=== PATIENT | female | born 1965 | race Caucasian/White ===

== ENCOUNTER 2025-01-09 14:24 | Emergency (ER) | payer MEDICAID, SELFPAY ==
[2025-01-09 14:40] VITALS: BP 140/76; PULSE 91; RESP 20; TEMP 36.6; O2SAT 98; BMI 40.4
[2025-01-09] MEDS: hydrOXYzine pamoate 25MG CAPSULE 50 MG PO (14:57)
--- NOTE | 2025-01-09 15:25 | HMH.EDGENADL ---
Discharge Plan Disposition Patient Disposition: Home, Self-Care Prescriptions Prescriptions: New lorazepam [Ativan] 1 mg tablet 1 mg PO Q8H PRN (Reason: anxiety) Qty: 9 0RF Referrals Follow up/Referrals: Kenji Acuña DO [Primary Care Provider] - See instructions Activity Restrictions/Add. Instructions Additional Instructions/Restrictions: I recommend that you follow-up closely with your primary care doctor or your behavioral health specialist to discuss all the stressors that are going on in your life return with any significant worsening of your symptoms such as chest pain shortness of breath or other concerns. Clinical Impressions Clinical Impression: Acute anxiety Print Language Print Language: Mozambican Discharge ED Provider: Geoff Menard General Adult HPI <Geoff Menard MD - Last Filed: 01/09/25 15:28> General Chief complaint: Anxiety Stated complaint: anxiety attack-light headed Time Seen by Provider: 01/09/25 14:40 Mode of Arrival: Ambulatory Source of Information: Patient Description of Symptoms (Recalled from ER Triage Doc. by RN): pt states she is very stressed out and hasnt beens leeping well and thinks she is having an anxiety attack today denies any acute issues History of Present Illness HPI narrative: Please note that above description of symptoms, in this electronic medical record under categorization of recalled from ER triage doctor by RN are reflective of an initial nursing assessment, however, is not reflective of my full history and physical exam that was personally taken and clarified. Consequentially, this preceding description of symptoms, which may include the patient's categorized chief complaint in the EMR, do not reflect my personal clinical impression, and the ultimate description of history of present illness and patient stated complaints should be deferred to this section of the note. Unless stated otherwise or congruent with this section of the note, additional signs, symptoms, or incongruence should be interpreted as inaccurate with my clinical impression. Related Data Previous Rx's ?Medication ?Instructions ?Recorded lorazepam 1 mg tablet (Ativan) 1 mg PO Q8H PRN anxiety #9 tabs 01/09/25 Allergies Allergy/AdvReac Type Severity Reaction Status Date / Time lisinopril Allergy Other Verified 01/09/25 14:53 PFSH <Geoff Menard MD - Last Filed: 01/09/25 15:28> PFS Disclaimer: The information contained in this section may have been updated after the patient was seen, as this information can be updated by other users. Social History (Updated 01/09/25 @ 15:28 by Geoff Meanrd MD) Smoking Status: Current every day smoker alcohol intake: never current occupational status: retired Travel in the last 8 weeks: None Have you lived/traveled outside US in past 30 days?: No Contact w/someone who lives/traveled outside US past 30 days?: No Exposure to someone with infectious disease in past 14 days?: No Do you have a fever (greater than 100.4 F or 38 C)?: No Have you tested positive for COVID-19: No Exposed to someone with COVID-19 in past 14 days?: No Do you have a sore throat?: No Do you have a cough?: No Do you have any weakness?: No Do you have any diarrhea?: No Are you experiencing any unusual bleeding?: No Do you have any muscle aches/pain?: No Do you have any abdominal pain?: No Are you experiencing loss of taste or smell?: No <Geoff Menard MD - Last Filed: 01/09/25 15:28> ROS Obtained: Yes All systems reviewed & no additional complaints except as documented Physical Exam <Geoff Menard MD - Last Filed: 01/09/25 15:28> General General appearance: alert and anxious Comment: Tearful, tremulous Head Head exam: atraumatic and normocephalic Eye Eye exam: Present normal appearance, PERRL and EOMI Neck Neck exam: Present normal inspection, full ROM and trachea midline Respiratory Respiratory exam: Absent respiratory distress, wheezes, stridor, accessory muscle use or prolonged expiratory phase Cardiovascular Cardiovascular exam: Present other (Pulses equal symmetric in upper and lower extremities) Abdominal Exam Abdominal exam: Present soft; Absent distention, tenderness or pulsatile mass Extremities Exam Extremities exam: Absent edema Neurological Exam Neurological exam: Present alert, oriented X3 and CN II-XII intact; Absent motor sensory deficit Psychiatric Psychiatric exam: Absent homicidal ideation or suicidal ideation Skin Skin exam: Present warm and dry; Absent diaphoresis or erythema Medical Decision Making <Geoff Menard MD - Last Filed: 01/09/25 15:28> Medical Records Medical records reviewed: Yes I reviewed the patient's medical records. Screening: Per USPSTF and CDC recommendations, given the prevalence of disease in our region, it is our hospital?s policy to screen for HIV and viral Hepatitis for all patients aged 18 and over and those with ongoing risk factors. Jac Inquiry Pt receiving controlled substance: No Jac was queried for this patient: No Vital Signs: 01/09/25 14:40 Temperature 97.9 F Temperature Source Oral Pulse Rate [Left Radial] 91 H Respiratory Rate 20 Blood Pressure [Right Arm] 140/76 Blood Pressure Mean [Right Arm] 97 02 Sat by Pulse Oximetry 98 Oxygen Delivery Method Room Air Orders (Tests/Meds): ED MEDICATIONS Discontinued Medications Generic Name Dose Route Start Last Admin Trade Name Freq PRN Reason Stop Dose Admin Hydroxyzine Pamoate 50 mg 01/09/25 14:55 01/09/25 14:57 Hydroxyzine Pamoate 25mg Capsule PO 01/09/25 14:56 50 mg ONCE ONE Administration Lorazepam 1 mg 01/09/25 16:17 01/09/25 16:20 Lorazepam 1mg Tablet PO 01/09/25 16:18 1 mg ONCE ONE Administration Medical Decision Narrative: This is a 59-year-old female presenting with panic attack. She states that she does have a history of anxiety, previously on benzodiazepines. These were discontinued months ago. States that she has had numerous deaths in the family recently, her was just discharged from the hospital due to an [place] last week. He has at home and is debilitated. She states that on top of all of this, she has a loved 1 who is currently on the ventilator and will likely be made comfort care today, 01/09. All of this coming to ahead and she states that she is having trouble handling at all. No homicidal or suicidal ideation. No hallucinations or psychotic symptoms. She states that she is incredibly anxious, think she is having a panic attack. Denies shortness of breath, chest pain, nausea, vomiting, syncopal episodes, or any other concerns. Came in for further evaluation and help. History obtained with patient. On my evaluation, patient tearful, tremulous, anxious and very obviously in emotional distress. Lungs are clear, cardiac exam nontachycardic, no murmurs gallops or rubs. No lower extremity edema. She is neurologically intact and nontangential answering questions appropriately. Alert and oriented. Because I believe patient is having acute panic attack, Vistaril to be administered. I do not feel this is likely business center representative of intoxication or withdrawal because patient has not been on benzodiazepines and denies any other drug use other than cigarettes and nicotine. Patient was administered Vistaril. Prior to reevaluation, care handed off to oncoming physician. Biostatistician disclaimer Much of this encounter note is an electronic workplace rehabilitation officer spoken language to printed text. Electronic workplace rehabilitation officer of the spoken language may permit errors. Although I have reviewed the note, some errors may still exist. <Deneen Galan MD - Last Filed: 01/09/25 16:47> Vital Signs: 01/09/25 14:40 Temperature 97.9 F Temperature Source Oral Pulse Rate [Left Radial] 91 H Respiratory Rate 20 Blood Pressure [Right Arm] 140/76 Blood Pressure Mean [Right Arm] 97 02 Sat by Pulse Oximetry 98 Oxygen Delivery Method Room Air Orders (Tests/Meds): ED MEDICATIONS Discontinued Medications Generic Name Dose Route Start Last Admin Trade Name Freq PRN Reason Stop Dose Admin Hydroxyzine Pamoate 50 mg 01/09/25 14:55 01/09/25 14:57 Hydroxyzine Pamoate 25mg Capsule PO 01/09/25 14:56 50 mg ONCE ONE Administration Lorazepam 1 mg 01/09/25 16:17 01/09/25 16:20 Lorazepam 1mg Tablet PO 01/09/25 16:18 1 mg ONCE ONE Administration ECG Data Tracing #1: I reviewed this ECG and interpreted as documented below: Ventricular rate of 84 normal sinus rhythm no acute ischemic changes noted no significant conduction abnormalities there is a normal axis Medical Decision Narrative: This is a 59-year-old female presenting with panic attack. She states that she does have a history of anxiety, previously on benzodiazepines. These were discontinued months ago. States that she has had numerous deaths in the family recently, her was just discharged from the hospital due to an [place] last week. He has at home and is debilitated. She states that on top of all of this, she has a loved 1 who is currently on the ventilator and will likely be made comfort care today, 01/09. All of this coming to ahead and she states that she is having trouble handling at all. No homicidal or suicidal ideation. No hallucinations or psychotic symptoms. She states that she is incredibly anxious, think she is having a panic attack. Denies shortness of breath, chest pain, nausea, vomiting, syncopal episodes, or any other concerns. Came in for further evaluation and help. History obtained with patient. On my evaluation, patient tearful, tremulous, anxious and very obviously in emotional distress. Lungs are clear, cardiac exam nontachycardic, no murmurs gallops or rubs. No lower extremity edema. She is neurologically intact and nontangential answering questions appropriately. Alert and oriented. Because I believe patient is having acute panic attack, Vistaril to be administered. I do not feel this is likely business center representative of intoxication or withdrawal because patient has not been on benzodiazepines and denies any other drug use other than cigarettes and nicotine. Patient was administered Vistaril. Prior to reevaluation, care handed off to oncoming physician. Biostatistician disclaimer Much of this encounter note is an electronic workplace rehabilitation officer spoken language to printed text. Electronic workplace rehabilitation officer of the spoken language may permit errors. Although I have reviewed the note, some errors may still exist. This is Dr. Galan I took over from Dr. Menard at around 3 PM. After Vistaril patient complained of chest tightness she was adamant that she was not having any chest pain. After further discussion with the patient she states that there has been a lot of anxiety at home including her 's recently in the hospital [id number] who is terminally ill moving and other stressors. In fact he was even having a screaming match with her in the waiting room that was witnessed. EKG was unremarkable her symptoms are not consistent with acute coronary syndrome or any cardiopulmonary emergency. She was given a dose of Ativan which completely resolved all of her symptoms. I sent her home with a few days of Ativan to be used as needed for her acute anxiety and stress and advised that she follow-up with primary care doctor she was discharged in improved and stable condition. Critical Care <Geoff Menard MD - Last Filed: 01/09/25 15:28> Critical Care Time Critical Care Time: No
[2025-01-09] MEDS: LORazepam 1MG TABLET 1 MG PO (16:20)
--- NOTE | 2025-01-09 16:24 | ECG_ITS ---
APPROVED REPORT Exam: Resting ECG HR:84 bpm ECG Measurements Heart Rate 84 AXES [place] 145 P 58 QRSd 78 QRS 57 QT 367 T 68 QTc 408 Conclusion SINUS RHYTHM NORMAL ECG UNCONFIRMED REPORT Electronically signed by : Wong Galan, 01/09/2025 22:57:25
[2025-01-09 16:49] VITALS: BP 136/78; PULSE 72; RESP 20; TEMP 36.8; O2SAT 98
== END 2025-01-09 16:49 | disposition home or self-care (01) ==
PROVIDERS: Emergency Provider Emergency Medicine; PCP Internal Medicine
DX: F41.9 Anxiety disorder, unspecified (principal)
CPT/HCPCS: 93005; 99283

== ENCOUNTER 2025-01-29 12:34 | Outpatient (CLI) | payer MEDICAID, SELFPAY ==
[2025-01-29 16:43] LABS: Microscopic, Urine URINE MICROSCOPIC (MICROSCOPIC)
[2025-01-29 20:39] LABS: Appearance,Urine CLEAR (Clear); Bilirubin,Urine Negative (Negative); Blood, Urine TRACE-I (Negative); Color,Urine YELLOW (Yellow); Glucose,Urine (UA) Negative (Negative); Ketones,Urine Negative (Negative); Leukocyte Esterase,Urine Negative (Negative); Nitrate,Urine Negative (Negative); Protein,Urine Negative (Negative); Specific Gravity, Urine 1.025 (1.005-1.030); Urobilinogen,Urine 0.2 EU/dl (0.2)
[2025-01-29 21:01] LABS: Bacteria,Urine 1+ /lpf
== END 2025-01-29 23:59 | disposition home or self-care (01) ==
LOC: LAB.DROPOF 01-31 12:35
PROVIDERS: PCP Internal Medicine; Visit Provider Internal Medicine
DX: N39.0 Urinary tract infection, site not specified (principal); R82.90 Unspecified abnormal findings in urine
CPT/HCPCS: 81001; 87086

== ENCOUNTER 2025-02-04 13:51 | Outpatient (CLI) | payer MEDICAID, SELFPAY ==
[2025-02-04 14:26] LABS: Basophils # 0.1 K/mm3 (0-0.2); Basophils % 0.5 % (0.1-2.0); Eosinophils # 0.3 Kmm3 (0.0-0.4); Eosinophils % 3.2 % (0.1-12.0); Hematocrit 45.1 % (37.0-47.0); Hemoglobin 15.7 g/dL (12.2-16.2); Immature Granulocytes # 0.02 10^3uL; Immature Granulocytes % 0.2 %; Lymphocytes # 5.4 K/mm3 (0.7-4.5); Lymphocytes % 53.1 % (10-50); Mean Corpuscular HGB Conc 34.8 g/dL (31.8-35.4); Mean Corpuscular Hemoglobin 32.1 pg (27.0-31.2); Mean Corpuscular Volume 92.2 fl (81-99); Mean Platelet Volume 10.9 fl (7.4-10.4); Monocytes # 0.9 K/mm3 (0.1-1.0); Neutrophils # 3.4 K/mm3 (1.8-7.8); Nucleated Red Blood Cells # 0 10^3/uL; Nucleated Red Blood Cells % 0 %; Platelet Count 233 K/mm3 (142-424); Red Blood Count 4.89 M/mm3 (4.20-5.40); Red Cell Distribution Width 12.9 % (11.5-17.5); Red Cell Distribution Width-SD 43.7 fL; White Blood Count 10.1 K/mm3 (4.8-10.8)
[2025-02-04 14:34] LABS: MANUAL DIFFERENTIAL MANUAL DIFFERENTIAL (MANUAL DIFF)
[2025-02-04 14:57] LABS: Alanine Aminotransferase 57 U/L (12-78); Albumin Level 4.2 g/dl (3.5-5.0); Albumin/Globulin Ratio 1.8 (1.1-1.8); Alkaline Phosphatase 97 U/L (38-126); Anion Gap 10.2 mEq/L (5-15); Aspartate Amino Transferase 47 U/L (14-36); Bilirubin,Total 0.7 mg/dl (0.2-1.3); Blood Urea Nitrogen 10 mg/dl (7-17); Calcium 8.8 mg/dl (8.4-10.2); Carbon Dioxide 28 mmol/L (22.0-30.0); Chloride 105 mmol/L (98-107); Chol/HDL Ratio 4.2 (1-3.5); Cholesterol 143 mg/dl (140-200); Estimated Glomerular Filt Rate 86 ml/min (>60); GFR (African American) 104 ML/MIN (>60); Globulin 2.3 g/dL (1.3-3.2); Glucose 69 mg/dl (74-100); HDL Cholesterol 34 mg/dl (40-60); Potassium 4.2 mmoL/L (3.5-5.1); Sodium 139 mmol/L (136-145); Total Protein,Serum 6.5 g/dl (6.3-8.2); Triglycerides 139 mg/dl (30-150); VLDL Cholesterol 28 mg/dL (0-40)
[2025-02-04 15:08] LABS: Direct LDL Cholesterol 92.84 mg/dL (100-129)
[2025-02-04 15:35] LABS: HIV Combo NEGATIVE (Negative)
[2025-02-04 15:43] LABS: Hepatitis C Ab Qual. W/ RFX NEGATIVE (Negative)
[2025-02-04 16:25] LABS: Hemoglobin A1C 5.8 % (4.0-6.0)
[2025-02-04 16:32] LABS: Eosinophils % 1 % (0-3); Lymphocytes % 49 % (10-50); Monocytes % 6 % (2-9); Neutrophils % 43 % (42-76); Total Cells Counted 100
[2025-02-04 16:33] LABS: Platelet Estimate Normal; RBC Morphology Normal
== END 2025-02-04 23:59 | disposition home or self-care (01) ==
LOC: LAB.DROPOF 13:52
PROVIDERS: Internal Medicine; PCP Nurse Practitioner Family; Visit Provider Nurse Practitioner Family
DX: Z00.00 Encounter for general adult medical examination without abnormal findings (principal); Z11.59 Encounter for screening for other viral diseases; Z13.1 Encounter for screening for diabetes mellitus; Z13.220 Encounter for screening for lipoid disorders; Z11.4 Encounter for screening for human immunodeficiency virus [HIV]
CPT/HCPCS: 80053; 80061; 83036; 85007; 85025; 85027; 86803; 87389

== ENCOUNTER 2025-02-11 07:29 | Outpatient (CLI) | payer MEDICAID, SELFPAY ==
--- NOTE | 2025-02-11 07:30 | US_ITS ---
PROCEDURE: US TRANSVAGINAL CLINICAL INDICATION: DIRECTOR TELEMETRY Bleeding COMPARISON: No exams were available for comparison FINDINGS: Transvaginal sonographic images of the pelvis were obtained. UTERUS: 6.8 cm x 4.2cmx 3.5 cm anteverted with a combined endometrial thickness of 4.8mm. The endometrium appears heterogenous and may contain a small polyp or clot. There is an anterior fibroid measuring 1.2 cm x 1.0 cm x 0.9 cm The myometrium appears heterogenous. LEFT OVARY: 3.0cmx2.2cmx2.5cm with a volume of 8.8ml. RIGHT OVARY: 2.9 cmx 2.8 cmx2.2cm with a volume of 9.1ml. Both ovaries are seen and appear normal. Doppler flow to both ovaries is not seen. There is no fluid in the cul-de-sac. IMPRESSION: 1. Anteverted uterus normal in shape and size. The endometrium appears slightly thickened and measures between 4.8 mm and 6.0 mm. The endometrium is heterogenous and may contain a small polyp or clot. There is a 1.2 cm fibroid in the anterior fundal myometrium. 2. Suggest endometrial sampling. 3. Both ovaries are seen and appear solid. Doppler flow could not be demonstrated to either ovary. The left ovary is posterior to the uterus. 4. No fluid in the cul-de-sac. Dictated by: Serafin Sheffield MD 02/11/2025 13:46 Serafin Sheffield MD in OV 02/11/2025 13:46
[2025-02-11 11:01] LABS: Basophils % 0.3 % (0.1-2.0); Eosinophils # 0.2 Kmm3 (0.0-0.4); Eosinophils % 2.1 % (0.1-12.0); Hematocrit 46.1 % (37.0-47.0); Hemoglobin 15.6 g/dL (12.2-16.2); Immature Granulocytes # 0.07 10^3uL; Immature Granulocytes % 0.6 %; Lymphocytes # 4.9 K/mm3 (0.7-4.5); Lymphocytes % 42.1 % (10-50); Mean Corpuscular HGB Conc 33.8 g/dL (31.8-35.4); Mean Corpuscular Hemoglobin 30.8 pg (27.0-31.2); Mean Corpuscular Volume 91.1 fl (81-99); Mean Platelet Volume 10.2 fl (7.4-10.4); Monocytes # 0.9 K/mm3 (0.1-1.0); Neutrophils # 5.5 K/mm3 (1.8-7.8); Neutrophils % 46.9 % (37.0-80.0); Nucleated Red Blood Cells # 0 10^3/uL; Nucleated Red Blood Cells % 0 %; Platelet Count 250 K/mm3 (142-424); Red Blood Count 5.06 M/mm3 (4.20-5.40); Red Cell Distribution Width 12.9 % (11.5-17.5); Red Cell Distribution Width-SD 42.4 fL; White Blood Count 11.7 K/mm3 (4.8-10.8)
[2025-02-11 11:16] LABS: Alanine Aminotransferase 50 U/L (12-78); Albumin Level 4.2 g/dl (3.5-5.0); Alkaline Phosphatase 93 U/L (38-126); Aspartate Amino Transferase 47 U/L (14-36); Bilirubin,Direct 0.2 mg/dl (0.0-0.4); Bilirubin,Indirect 0.3 mg/dL (0.0-0.9); Bilirubin,Total 0.5 mg/dl (0.2-1.3); Bilirubin,Unconjugated 0.4 mg/dL (0.0-1.1); Blood Urea Nitrogen 8 mg/dl (7-17); Calcium 9.1 mg/dl (8.4-10.2); Carbon Dioxide 29 mmol/L (22.0-30.0); Chloride 106 mmol/L (98-107); Chol/HDL Ratio 2.8 (1-3.5); Cholesterol 106 mg/dl (140-200); Estimated Glomerular Filt Rate 86 ml/min (>60); GFR (African American) 104 ML/MIN (>60); Glucose 112 mg/dl (74-100); HDL Cholesterol 38 mg/dl (40-60); Magnesium 1.7 mg/dl (1.6-2.3); Sodium 142 mmol/L (136-145); Total Protein,Serum 6.5 g/dl (6.3-8.2); Triglycerides 162 mg/dl (30-150); VLDL Cholesterol 32 mg/dL (0-40)
[2025-02-11 11:27] LABS: Direct LDL Cholesterol 56.85 mg/dL (100-129)
[2025-02-11 11:32] LABS: Free T4 (Free Thyroxine) 1.01 ng/dl (0.78-2.19)
[2025-02-11 11:47] LABS: Thyroid Stimulating Hormone 3.71 uIU/mL (0.465-4.68)
== END 2025-02-11 23:59 | disposition home or self-care (01) ==
PROVIDERS: PCP Internal Medicine; Visit Provider Nurse Practitioner
DX: Z01.810 Encounter for preprocedural cardiovascular examination (principal); D25.9 Leiomyoma of uterus, unspecified; I10 Essential (primary) hypertension; R93.89 Abnormal findings on diagnostic imaging of other specified body structures
CPT/HCPCS: 36415; 76830; 80048; 80061; 80076; 83735; 84439; 84443; 85025

== ENCOUNTER 2025-02-12 11:55 | Outpatient (CLI) | payer MEDICAID, SELFPAY ==
--- NOTE | 2025-02-12 | CA_ITS ---
APPROVED REPORT EXAM: Comprehensive 2D, Doppler, and color-flow Echocardiogram Warehouse Engineer: Tiki Acuña CRT Ht: 4 ft 11 in Wt: 206lbs BSA: 1.87 BP: 148/79 mmHg Indications: pre-op for OBGYN surgery, cp, sob, HTN, TIA, SOB, smoker 2D Dimensions LA Volume 31.20 mL LA Volume Index 16.30 mL/m2 (M/F) 16-34 M-Mode Dimensions RVDd 2.39 cm (0.9-2.6) LA Diam 3.30 cm (1.9-4.0) LVDd 3.50 cm (3.5-5.7) LVDs 2.00 cm (3.5-5.7) IVSd 2.00 cm (0.6-1.1) PWd 0.93 cm (0.6-1.1) EF (Teich) 75.00% FS 42.90% EDV (Teich) 50.90 mL TAPSE 1.61 (<1.7) ESV (Teich) 12.70 mL LV Diastology E Decel Time 223 (160-240 msec) E/A Ratio 0.73 MED A' 12.40 cm/s LAT A' 13.40 cm/s Aortic Valve AO Peak GR. 8.50 mmHg Mitral Valve MV E Max Marcus. 69.0 (40-130 cm/s) MV A Velocity 95.0 (40-130 cm/s) E/A Ratio 0.73 MV PHT 65.0 ms Pulmonary Valve PV Peak Velocity 133.0 (50-150 cm/s) Tricuspid Valve TR P. Velocity 138.00 cm/s RAP Estimate 10.00 mmHg RVSP 17.60 mmHg Left Ventricle The left ventricle is normal size. Left ventricular systolic function is hyperdynamic. LVEF is 70%. There is increased LV wall thickness. An intracavitary gradient is present. No evidence of LVOT obstruction. Transmitral Doppler flow pattern suggests impaired LV relaxation. Right Ventricle The right ventricle is normal size. The right ventricular systolic function is normal. Atria The left atrium size is normal. The right atrium size is normal. There is no Doppler evidence of interatrial shunt. Aortic Valve The aortic valve is normal in structure. There is no aortic valvular stenosis. No aortic regurgitation is present. Mitral Valve The mitral valve is normal in structure. No evidence of mitral valve stenosis. Mild mitral regurgitation. Tricuspid Valve Tricuspid valve is grossly normal in structure and function. Trace tricuspid regurgitation. There is insufficient TR jet to estimate RVSP. Pulmonic Valve The pulmonary valve is normal in structure. Trace pulmonic regurgitation. Great Vessels The aortic root is normal in size. IVC is normal in size and collapses >50% with inspiration. Pericardium There is no pericardial effusion. Other Information Study Quality: Fair Conclusion Hyperdynamic LV systolic function (LVEF 70%). Intracavitary gradient is present. Normal RV size and function. Mild MR. In the setting of hyperdynamic LV systolic function and intracavitary gradient, further evaluation with non-urgent cardiac MRI (HCM protocol) is suggested. Electronically signed by : Sara Saravia MD 02/23/2025 18:49:40
--- NOTE | 2025-02-12 | CA_ITS ---
APPROVED REPORT Exam: Pharmacologic Technologist: Carmelita Fish Ht: 4 ft 11 in Wt: 206 lbs BSA: 1.87 m2 HR: 73 bpm BP: 156/76 mmHg Stress Test Details Test: Lexiscan HR Resting HR: 73 bpm Max Heart Rate (APMHR): 163.990984 bpm Max HR Achieved: 101 bpm Target HR (85% APMHR): 138.560233 bpm % of APMHR: 61.96 Recovery HR: 90 bpm BP Resting BP: 156.0/76.0 mmHg Max BP: 158.0/82.0 mmHg Recovery BP: 120.0/74.0 mmHg ECG Stress ECG Conclusion Symptoms: Neck and shoulder cramping wiht Lexiscan. Nausea is noted as well. Arrhythmias/Ectopy: None ST-T Changes: Unremarkable with Lexiscan Electronically signed by : Sara Saravia MD 02/12/2025 23:32:39
--- NOTE | 2025-02-12 12:30 | NM_ITS ---
APPROVED REPORT Exam: Nuclear Stress Test Indication: cp..soa..plapitations..fatigue Patient Location: Outpatient Stress Tech: Carmelita Fish NM Tech:Vania Monge, ARRT, RT (R)(N) Ht: 4 ft 11 in Wt: 205 lbs Bra Size: 44dd HR: 71 bpm BP: 156/76 mmHg BSA: 1.86 m2 TID: 1.03 BMI: 41.4 History: cp..soa..plapitations..fatigue Procedure: Patient received 0.4 mg of intravenous Lexiscan, resting heart rate 71 bpm, resting blood pressure 156/76 mmHg, with Lexiscan maximum heart rate achieved was 102 bpm which is 85 % of the maximum predicted heart rate and blood pressure was 158/76 mmHg. With Lexiscan, patient denied any complaint of chest pain. Cardiac Stress and Resting SPECT Images: Cardiac Stress and Resting SPECT images were obtained using technetium 99m Myoview 30.9 mCi stress and 10.98 mCi at rest. Resting and stress imaging in supine and prone positions demonstrate no evidence of fixed or reversible perfusion defects. Gated imaging demonstrates normal global and regional LV systolic function. LVEF is calculated at 77%. Conclusion: No evidence of fixed or reversible perfusion defects. Gated imaging demonstrates normal global and regional LV systolic function. LVEF is calculated at 77%. Electronically signed by : Sara Saravia MD 02/12/2025 23:31:06
[2025-02-12] MEDS: SODIUM CHLORIDE 0.9% 10ML SYR (RAD ONLY) 10 ML IV ×2 (14:32)
[2025-02-12] MEDS: REGADENOSON 0.4MG/5ML SYRINGE 0.4 MG IV (14:32)
[2025-02-12] MEDS: ISOTOPE MYOVIEW (PER STUDY) 1 DOSE IV (14:32)
== END 2025-02-12 23:59 | disposition home or self-care (01) ==
LOC: RAD 11:55
PROVIDERS: PCP Internal Medicine; Visit Provider Nurse Practitioner
DX: Z01.810 Encounter for preprocedural cardiovascular examination (principal); I34.0 Nonrheumatic mitral (valve) insufficiency; I11.9 Hypertensive heart disease without heart failure; R25.2 Cramp and spasm
CPT/HCPCS: 78452; 93017; 93018; 93306; A9502; J2785

== ENCOUNTER 2025-02-14 12:12 | Outpatient (CLI) | payer MEDICAID, SELFPAY ==
[2025-02-19 14:24] VITALS: BMI 41.8
== END 2025-02-14 23:59 | disposition home or self-care (01) ==
LOC: PREOP 12:13
PROVIDERS: PCP Internal Medicine; Visit Provider Obstetrics & Gynecology
DX: R69 Illness, unspecified (principal)

== ENCOUNTER 2025-02-18 09:39 | Outpatient (CLI) | payer MEDICAID, SELFPAY ==
--- NOTE | 2025-02-18 10:00 | MM_ITS ---
PROCEDURE INFORMATION: Exam: MG Bilateral Screening 3D Mammography Exam date and time: 02/18/2025 10:08 AM Age: 59 years old Clinical indication: Screening exam TECHNIQUE: Imaging protocol: Bilateral Screening tomosynthesis and 2D mammography including computer-aided detection (CAD) when performed. COMPARISON: 1. MG MAMMOGRAPHY BREAST SCREENING TOMOSYNTHESIS BILATERAL 03/30/2023 7:07 AM 2. MG Screening Mamm w/cad 11/11/2020 12:00 PM FINDINGS: MAMMOGRAPHY: Breast composition: There are scattered areas of fibroglandular density. Mass: None. Architectural distortion: None. Calcifications: No suspicious calcifications. Asymmetric density: None. Skin thickening: None. Axillary adenopathy: None. IMPRESSION: No mammographic evidence of malignancy. Annual screening is recommended unless otherwise clinically indicated. ASSESSMENT: BI-RADS 1, Negative.
--- NOTE | 2025-02-18 10:30 | CT_ITS ---
FINAL REPORT TECHNIQUE: Thin section axial images were obtained through the lungs using a low-dose technique per lung cancer screening protocol. Reconstruction images were obtained using the axial data. Exam was performed using dose reduction technique. CLINICAL HISTORY: lung cancer screening smoker, 1/2 x 46 years COMPARISON: None FINDINGS: CTDLvol: 2.90 DLP: 100.29 Current smoker 23 pack year history Lungs: No acute pulmonary abnormality. There is a 6 mm nodule along the left major fissure, best seen on image #38 of series 4, favor an intrafissural node. A second nodule is noted in the left lower lobe measuring 4 mm in size, best seen on image #48 of series 4. Lymph nodes: No thoracic lymphadenopathy. Mediastinum: Heart size is normal. Pleura/pericardium: No pleural or pericardial effusion. Other: No acute abnormality in the upper abdomen. IMPRESSION: 2 pulmonary nodules are identified as described above, both subcentimeter. Lung RADS: 2 Recommendation: 12-month follow-up LDCT Reviewed, Interpreted and Dictated by Urszula Gaspar MD Transcribed by Mikaela Nuñez Authenticated and [facility]
== END 2025-02-18 23:59 | disposition home or self-care (01) ==
LOC: RAD 09:40
PROVIDERS: PCP Internal Medicine; Visit Provider Internal Medicine
DX: Z12.31 Encounter for screening mammogram for malignant neoplasm of breast (principal); R92.323 Mammographic fibroglandular density, bilateral breasts; R91.8 Other nonspecific abnormal finding of lung field; F17.209 Nicotine dependence, unspecified, with unspecified nicotine-induced disorders; Z12.2 Encounter for screening for malignant neoplasm of respiratory organs
CPT/HCPCS: 71271; 77063; 77067

== ENCOUNTER 2025-02-20 07:31 | Day surgery (SDC) | payer MEDICAID, SELFPAY ==
[2025-02-19 14:29] VITALS: BMI 41.8
[2025-02-20] VITALS (9 sets, daily range): BP systolic 138–157; BP diastolic 80–101; PULSE 77–107; RESP 16–18; TEMP 36.1–36.6; O2SAT 93–97
--- NOTE | 2025-02-20 09:29 | P.PNANES_ITS ---
[facility] Disclaimer: The information contained in this section may have been updated after the patient was seen, as this information can be updated by other users. Medical History Post-menopausal bleeding TIA (transient ischemic attack) Anxiety Glaucoma Asthma Hx of fracture of arm Fracture of neck Cyst of ovary Surgical History History of intestinal surgery Hx of removal of cyst Family History Other Cancer Family history of cardiomyopathy Family history of stroke Social History Smoking Status: Current every day smoker alcohol intake: never substance use type: denies use current occupational status: retired Travel in the last 8 weeks?: None [facility] Anesthesia Checklist Patient Identification Patient Identification: Arm Band Structural Data Admitted From: Home Planned Operative Procedure/s: Hysteroscopy, D&C, Myosure Consent for Planned Operative Procedure(s) Verified: Yes Verified Documents: Surgical Consent and History and Physical NPO Status Verified Time NPO: 00:00 Additional verifications Anesthesia Reactions: No Hx Blood Transfusions: No Blood Transfusion Reaction: No Airway Assessment Mallampati Score:: Class II C-Spine Mobility Assessed: Yes TMJ Mobility Assessed: Yes Dentition: Poor Dentition Neurological Assessment Level of Consciousness: Awake, Alert and Appropriate Anesthesia Plan Anesthesia Risk discussed: Yes Anesthesia Plan: Verified ASA Class: III Anesthesia Type: General
[2025-02-20] MEDS: SODIUM CHLORIDE IRRIG SOLUTION 3,000 ML 3000 ML IR (09:45)
--- NOTE | 2025-02-20 10:46 | EXP.ANES.I ---
[facility] Anesthesia Record Part I Anesthesia Record I Intake, IV Amount: 700 Hydration: Adequate Estimated blood loss (mL): 0 Urine output (mL): 100 Blood Pressure: 143/93 SaO2: 94 Pulse Rate: 99 Airway Patency: Patent Respiratory Rate: 18 Temperature: 97.8 F Patient is:: Awake Stable to PACU at:: 10:45
--- NOTE | 2025-02-20 11:02 | EXP.OP.NOTE ---
Date of procedure: 02/20/25 Pre-op Diagnosis:: 1. Postmenopausal bleeding 2. Suspect endometrial polyp Post-op Diagnosis:: 1. Postmenopausal bleeding 2. Suspect endometrial polyp Procedure performed:: Hysteroscopy, dilation, and MyoSure polypectomy and sharp MyoSure curettage Surgeon:: Kirstin Acuña DO SOFTWARE DEVELOPER MID LEVEL:: Other (Claudine) Anesthesia: LMA Estimated blood loss (mL): 5 Clinical Note:: Nga Parikh is a 59-year-old who presented to me for postmenopausal bleeding Operative findings:: Findings: -EUA was nonrevealing secondary to habitus. There was minimal uterine descent with a small nulliparous appearing cervix -Hysteroscopy revealed an endometrial polyp which was pedunculated initiating in the endometrial cavity and protruding through the internal cervical os Operative note:: The patient was taken back to the OR where general anesthesia was obtained.? She was placed in the dorsal lithotomy position using yellow fin stirrups and sterilely prepped and draped in the usual fashion.? An in and out catheter was used to drain her bladder, approximately 100 mL of urine was drained.? A timeout was performed.? A weighted speculum was used to visualize this cervix, a single-tooth tenaculum was applied to the anterior lip of the cervix. The cervix was only slightly dilated to allow entry to the ectocervix and hydrodisection was used to get the scope the rest of the way into the cavity. The hysterscope was inserted and a large polyp was noted as described above. Images were obtained of the cavity. Scope was then manipulated around the polyp to visualize the fundus and tubal ostia. Decision was made to proceed with the MyoSure for polypectomy. Device set up, primed and zeroed. The device was used to resect the outer edge of the polyp until the complete polyp was removed down to the base. At the conclusion of the procedure there was a fluid deficit of 10mLs. Total myosure cutting time was less than 1 minute. Following complete removal of the polyps the MyoSure was removed and hysteroscope was used to evaluate the endometrium which was very thin without any abnormalities noted. Hysteroscope was removed.? A #2 sharp curette was introduced through the cervical os and gently advanced to the fundus.? The endometrial cavity was sharply curetted 360 degrees.? Endometrial curettings were collected on a Telfa pad, passed off the operative field and sent to pathology for further evaluation.? The single-tooth tenaculum was removed and hemostasis was noted at the tenaculum sites.? All instruments were removed from the vagina.? All counts were correct, per nursing.? This concluded the procedure, the patient was awakened from anesthesia, and transferred to the PACU in stable condition. Condition: stable Disposition: same day Specimens:: 1. Endometrial polyp 2. Endometrial curettings Complications:: None
[2025-02-20] MEDS: OXYCODONE 10MG W/APAP 325MG TABLET 1 EACH (11:31)
[2025-02-20] MEDS: LIDOCAINE 1% W/EPI 1:100,000 20ML VIAL 20 ML (13:33)
--- NOTE | 2025-02-20 14:55 | P.PNANES_ITS ---
[facility] Anesthesia Record Part II Anesthesia Record Part II Discharge Time: 11:05 Destination: Surgical Day Care (OP Surgery) PACU nurse assessment reviewed?: Yes Patient Condition:: Good Anesthesia Complications:: None Swallowing reflex intact?: Yes Airway Patency: Patent Cyanosis?: No Blood Pressure: 138/94 SaO2: 95 Respiratory Rate: 16 Pulse Rate: 87 Temperature: 97.8 F Mental Status: Alert & Oriented Pain level:: 0 Nausea and/or vomitting:: None Intake, IV Amount: 0 Hydration: Adequate
--- NOTE | 2025-02-21 15:27 | SUR.PHASEII ---
1115-IV removed per Madhav. Pt not cooperative w/care per Madhav RN. 1120-pt up to bathroom. Able to void. c/o burning. 1125- called. VO given for percocet 10 mg now for pain. 1130-pt getting dressed. warm blankets placed between pt legs and sitting in recliner for relief. 1140-pt education given on a mavis bottle for warm fluids instead of wiping to help w/burning sensation. Sitz bath given to pt to take home. 1145- pt taken by w/c to care. More compliant at this time.
== END 2025-02-20 11:45 | disposition home or self-care (01) ==
PROVIDERS: PCP Internal Medicine; Visit Provider Obstetrics & Gynecology
PROC: 0UDB8ZZ Extraction of Endometrium, Via Natural or Artificial Opening Endoscopic (ICD-10-PCS; CPT 58558; principal; 2025-02-20 10:00)
DX: N95.0 Postmenopausal bleeding (principal); N84.0 Polyp of corpus uteri; L68.0 Hirsutism; F17.210 Nicotine dependence, cigarettes, uncomplicated; E66.9 Obesity, unspecified; E78.5 Hyperlipidemia, unspecified; I10 Essential (primary) hypertension; G89.29 Other chronic pain; F41.9 Anxiety disorder, unspecified; J45.909 Unspecified asthma, uncomplicated; Z86.73 Personal history of transient ischemic attack (TIA), and cerebral infarction without residual deficits; Z68.41 Body mass index [BMI] 40.0-44.9, adult; Z87.42 Personal history of other diseases of the female genital tract; Z79.899 Other long term (current) drug therapy
CPT/HCPCS: 58558; J0665; J0666; J1100; J1200; J2003; J2004; J2250; J2405; J2704; J3010

== ENCOUNTER → 2025-03-14 20:33 | Outpatient (CLI) | payer MEDICAID, SELFPAY ==
--- OUTSIDE RECORDS SUMMARY | 2025-02-13 06:11 | XMS_ITS ---
Author Organization [facility] Address [address] [place] [address] Care Team Providers Care Electronic Plotting System Operator Name Role Phone Onel Castro II Unavailable Domenico FORRESTER- [facility], Kenji Unavailable Unavai lable REASON FOR VISIT Referral Response - [facility]: Re-Est/Kenji Acuña DO/[employer] [facility] Encounters Encounter Location Date Provider Diagnosis [facility] [address] [place] [address] 02/13/2025 Onel Castro PLAN OF TREATMENT No Information
--- OUTSIDE RECORDS SUMMARY | 2025-03-14 20:39 | XMS_ITS | Encounter Summary ---
Author Organization [facility] Address [address] [place] [address] Care Team Providers Care Computer Graphic Artist Name Role Phone Mariano Trujillo MD Primary Care Provider [phone] Reason for Referral * Consultation (Routine) - Closed Specialty Diagnoses / Procedures Referred By Contac t Referred To Contact Pain Medicine Diagnoses Lumbar disc disease Mariano Trujillo MD [address] [place] [address] Phone: tel: fax: [facility] Interventional Pain Medicine [address] [place] [address] Phone: tel: fax: Referral ID Status Reason Start Date Expiration Date V isits Requested Visits Authorized [id number] Closed Specialty Services Required 05/23/2022 11/22/2023 1 1 Encounter Details Date Type Department Care Team (Late st Contact Info) Description 05/23/2022 Community [facility] Community [facility] [address] [place] [address] Mariano Trujillo MD [address] [place] [address] Lumbar disc disease (Primary Dx); Chronic pain of left knee Social History Tobacco Use Types Packs/Day Years Used Date Smoking Tobacco: Every Day Alcohol Use Standard Drinks/Week Comments Yes 0 (1 standard drink = 0.6 oz pure alcohol) Alcoholic Drinks/day: Social alcohol use Comments Unknown Sex and Gender Information Value Date Recorded Sex Assigned at Not on file Legal Sex Female 8:44 PM EDT Gender Identity Not on file Sexual Orientation Not on file documented as of this encounter Plan of Treatment Scheduled Referrals Name Type Priority Associated Diagnoses Order Schedule Ambulatory referral to Pain Medicine Outpatient Referral Routine Lumbar disc disease Expected: 05/23/2022 (Approximate), Expires: 11/21/2023 documented as of this encounter Visit Diagnoses Diagnosis Lumbar disc disease- Primary Other and unspecified disc disorder of lumbar region Chronic pain of left knee documented in this encounter Care Teams Computer Graphic Artist Relationship Specialty Start Date End Date Mariano Trujillo MD [address] [place] [address] PCP - General 01/29/21 documented as of this encounter
--- OUTSIDE RECORDS SUMMARY | 2025-03-14 20:39 | XMS_ITS | Clinical Summary ---
Author Organization [facility] Address [address] [place] [address] Care Team Providers Care Lead Generation Representative Name Role Phone Mariano Trujillo MD Primary Care Provider [phone] Allergies Active Allergy Reactions Criticality Noted Date Comments Cyclobenzaprine Other - please docum ent in the comment field Low 07/04/2016 Horse-Derived Products Hives Medium 12/28/2015 Lisinopril Cough Low 11/15/2017 Tramadol Itching,Rash Medium 12/28/2015 Medications atorvastatin (Lipitor) 20 MG tablet 08/07/2018 Active carvedilol (Coreg) 6.25 MG tablet Take 1 tablet by mouth every 12 (twelve) hours. 08/14/2018 Active diazePAM (Valium) 5 MG tablet Take 5 mg by mouth. 07/18/2018 Active famotidine (Pepcid) 20 MG tablet Take 1 tablet by mouth 2 (two) times a day. 05/03/2022 Active ipratropium-alb uterol (Duo-Neb) 0.5-2.5 mg/3 mL nebulizer solution Inhale 3 mL 4 times a day. 01/28/2022 Active pantoprazole (Protonix) 40 MG EC tablet Take 40 mg by mouth 1 (one) time each day. 05/03/2022 Active promethazine (Phenergan) 12.5 MG tablet Take 12.5 mg by mouth. 01/22/2018 Active tiZANidine (Zanaflex) 4 MG tablet Take 4 mg by mouth 3 times a day. 11/23/2021 Active Ventolin HFA 108 (90 Base) MCG/ACT inhaler take 2 puffs by mouth every 4 hours as needed for wheeze 10/26/2024 Active cholecalciferol (Vitamin D3) 25 MCG (1000 UT) tablet Take 3 tablets (3,000 Units) by mouth 1 (one) time each day. 08/21/2024 Active gabapentin (Neurontin) 300 MG capsule Take 1 capsule (300 mg) by mouth every 12 (twelve) hours. 11/07/2024 Active HYDROcodone-gato taminophen (Warren) 5-325 MG tablet Take 1 tablet (5 mg of hydrocodone) by mouth every 12 (twelve) hours. 10/08/2024 Active lidocaine (Lidoderm) 5 % patch 08/01/2024 Active nicotine (Nicoderm CQ) 21 MG/24HR patch 1 patch. DIRECTED BY PROVIDER 11/07/2024 Active Family History Medical History Relation Name Comments Rectal cancer Mother Arthritis Other 1 Hypertension Other 2 Rectal cancer Sister Relation Name Status Comments Mother Other 1 Other 2 Sister Social History Tobacco Use Types Packs/Day Years Used Date Smoking Tobacco: Every Day Cigarettes Smokeless Tobacco: Never Tobacco Cessation:Ready to Q uit: Not Asked; Counseling Given: Not Answered Alcohol Use Standard Drinks/Week Comments Yes 0 (1 standard drink = 0.6 oz pure alcohol) Alcoholic Drinks/day: Social alcohol use Comments No Sex and Gender Information Value Date Recorded Sex Assigned at Not on file Legal Sex Female 8:44 PM EDT Gender Identity Not on file Sexual Orientation Not on file Last Filed Vital Signs Vital Sign Reading Time Taken Comments Blood Pressure 146/81 12/05/2024 9:01 AM EDT Pulse 73 12/05/2024 9:01 AM EDT Temperature 36.7 C (98 F) 06/07/2022 8:04 AM EDT Respiratory Rate 16 06/07/2022 8:04 AM EDT Oxygen Saturation 95% 12/05/2024 9:01 AM EDT Inhaled Oxygen Concentration - - Weight 92 kg (202 lb 13.2 oz) 12/05/2024 9:01 AM EDT Height 149.9 cm (4' 11 ) 12/05/2024 9:01 AM EDT Body Mass Index 40.97 12/05/2024 9:01 AM EDT Plan of Treatment Health Maintenance Due Date Last Done Comments [facility]-Depression Screening 1965 [facility]-HIV Screening 1965 [facility]-Hepatitis C Screening 1965 [facility]-/Child/Adol SDOH Screenings 1965 [facility]- SDOH Screenings 1985 [facility]-Adult SDOH Screenings 1985 [facility]-DTaP,Tdap,and Td Vaccines (1 - Tdap) 1986 [facility]-Hepatitis B Vaccines (1 of 3 - 19+ 3-dose series) 1986 [facility]-Pneumococcal Vaccine: 50+ Years (1 of 2 - PCV) 1986 [facility]-Pap Smear 07/17/2003 07/17/2000, 11/16, 09/23/1997, Additional history exists [facility]-Cervical Cancer Screening 07/17/2005 [facility]-HPV/Cotest 07/17/2005 07/17/2000, 11/16, 09/23/1997, Additional history exists CT Colonography 02/22/2012 FIT-DNA 02/22/2012 FIT 02/22/2012 FOBT 02/22/2012 Sigmoidoscopy 02/22/2012 [facility]-Zoster Vaccines (1 of 2) 2017 Colonoscopy 12/12/2022 12/12/2012 [facility]-Colorectal Cancer Screening 12/12/2022 BNQ-EEENG-14 Vaccine (2 - season) 2024 10/08/2021 [facility]-Breast Cancer Screening 03/30/202503/18, 11/11/2020, 04/24/2019, Additional history exists [facility]-Diabetes: Hemoglobin A1C 08/20/202511/2023, 11/09/2023, 02/02/2020, Additional history exists [facility]-Influenza Vaccine Completed 08/20/2024 , 08/01/2023, 06/26/2020, Additional history exists [facility]-Obesity Intervention Completed 12/05/2024, 05/20 HPV Vaccines Aged Out No longer eligi ble based on patient's age to complete this topic [facility]-HIB Vaccines Aged Out No longer e ligible based on patient's age to complete this topic [facility]-Hepatitis A Vaccines Aged Out No longer eligible based on patient's age to complete this topic [facility]-IPV Vaccines Aged Out No longer e ligible based on patient's age to complete this topic [facility]-Rotavirus Vaccines Aged Out No lo nger eligible based on patient's age to complete this topic Procedures Procedure Name Priority Date/Time Associated Diagnosis Comments MAMMOGRAPHY BREAST SCREENING TOMOSYNTHESIS BILATERAL Routine 03/30/2023 7:11 AM EDT Visit for screening mammogram COLONOSCOPY 12/12/2012 CYTO DATA CONVERSION Routine 07/17/2000 12:00 AM EST from Last 3 Months or Most Recently Relevant to Health Maintenance Results * Mammography Breast Screening Tomosynthesis Bilateral (03/30/2023 7:11 AM EDT) Anatomical Region Laterality Modality Breast Bilateral Mammography Impressions 03/31/2023 3:39 PM EDT No mammographic evidence of malignancy. BI-RADS CATEGORY: Overall: 1 - Negative RECOMMENDATION: - Routine Screening Mammogram in 1 Year. Patient Lifetime Risk Score of Breast Malignancy: 5.3 % This risk assessment is calculated using the April Risk Assessment model which may underestimate the lifetime risk of breast malignancy. COMMUNICATION: Computer-aided detection (CAD) and tomosynthesis were utilized by the radiologist in the interpretation of this examination. The results and recommendations will be sent to the patient in a printed lay language version of the imaging report. Narrative 03/31/2023 3:39 PM EDT EXAM: Mammography Breast Screening with Tomosynthesis REASON FOR EXAM: Screening Mammogram HISTORY: Patient is 58 y.o. COMPARISON STUDIES: Compared to: 06/13/2014 Mammography Breast Screening Tomosynthesis Bilateral 03/08/2016 Mammography Breast Screening Tomosynthesis Bilateral at [facility] 04/05/2017 Mammography Breast Screening Tomosynthesis Bilateral at [facility] 04/24/2019 Mammography Breast Screening Tomosynthesis Bilateral at [facility] 11/11/2020 Mammography Breast Screening Tomosynthesis Bilateral at [facility] BREAST COMPOSITION: The breasts are almost entirely fatty. FINDINGS: There are no suspicious masses, calcifications, or areas of architectural distortion. Mariano Trujillo MD IMG BI PROCEDURES Final Result * COLONOSCOPY (12/12/2012) Anatomical Region Laterality Modality Endoscopy Narrative 12/12/2012 Ordered by an unspecified provider. Historical Provider MD GI PROCEDURE ORDERABLES F inal Result * Cytology (07/17/2000 12:00 AM EST) 07/17/2000 07/18/2000 10: 39 AM EST Narrative SUNQUEST - 07/22/2000 12:52 PM EST [facility] MR #: [id number] [facility] [place] [address] 1965 (Age: 35) FW Collect Date: 07/17/2000 00:00 Receipt Date: 07/18/2000 10:39 Page 1 DEPARTMENT OF PATHOLOGY AND LABORATORY MEDICINE CYTOPATHOLOGY REPORT Email: [email or web address] MD/Practitioner: Severo Jennings MD Service: SECOND HAND PAPER MACHINE Location: OB OTHER MD(S): May Mills M.D. Reported: 07/22/2000 12:52 Collected: 07/17/2000 00:00 INTERPRETATION THIN PREP (CERVICAL/VAGINAL): WITHIN NORMAL LIMITS. SATISFACTORY FOR INTERPRETATION. Electronically Signed Out By ANDRÉS Damon (ASCP) ANDRÉS Garcia (ASCP) ANDRÉS Damon (ASCP) Cervical cytology is a screening test primarily for squamous cancers and precursors and has associated false negative and positive results. New technologies such as liquid based sampling may decrease but will not eliminate all false negative results. Regular screening and follow-up of unexplained clinical signs and symptoms are recommended to minimize false negative results. Please see the ASCCP website (www.asccp.org) for followup recommendations. If HPV testing was requested, correlation with the results is suggested (please call Microbiology at [phone] for results). CLINICAL INFORMATION: Menstrual History: {Not Provided} Date of Last Menstrual Period: BEGINNING OF JUN SPECIMEN DESCRIPTION: A: THIN PREP (CERVICAL/VAGINAL) THIN PREP PROCESS CELLULAR ENHANCEMENT ICD: V76.2 CERVIX, SPECIAL SCREENING FOR MALIGNANT NEOPLASM F: A; THIN SCRN 33225 SNOMED CODES: A; [id number] In cases where a pathologist has signed out the report, the service has been rendered in part by a resident. The signing pathologist has performed and is responsible for the reported pathologic evaluation. us Historical Provider MD LAB PATHOLOGY ORDERABLES Final Result [place] from Last 3 Months or Most Recently Relevant to Health Maintenance Insurance [facility] [employer] [facility] MEDICAID Care Teams Lead Generation Representative Relationship Specialty Start Date End Date Mariano Trujillo MD [address] [place] [address] PCP - General 01/29/21
--- OUTSIDE RECORDS SUMMARY | 2025-03-14 20:39 | XMS_ITS | Encounter Summary ---
Author Organization Healthcare Address [address] [place] [address] Care Team Providers Care Implementation Services Analyst Name Role Phone Mariano Trujillo MD Primary Care Provider Encounter Details Date Type Department Care Team ([facility] Contact Info) Description 09/17/2024 Orders Only External Location [address] [place] [address] Provider, External Social History Tobacco Use Types Packs/Day Years Used Date Smoking Tobacco: Every Day Cigarettes Smokeless Tobacco: Never Alcohol Use Standard Drinks/Week Comments Yes 0 (1 standard drink = 0.6 oz pure alcohol) Alcoholic Drinks/day: Social alcohol use Comments No Sex and Gender Information Value Date Recorded Sex Assigned at Not on file Legal Sex Female 8:44 PM EDT Gender Identity Not on file Sexual Orientation Not on file documented as of this encounter Plan of Treatment Not on file documented as of this encounter Procedures Procedure Name Priority Date/Time Associated Diagnosis Comments MR NEURO OUTSIDE IMAGES 09/17/2024 9:10 AM EST documented in this encounter Results * MR NEURO OUTSIDE IMAGES (09/17/2024 9:10 AM EST) Anatomical Region Laterality Modality Magnetic Resonan ce 09/17/2024 9:10 AM EST us External Provider IMG MRI PROCEDURES Final Resul t documented in this encounter Visit Diagnoses Not on filedocumented in this encounter Additional Health Concerns Assessment Noted Time A fall risk assessment has been complete d for the patient 06/07/2022 8:04 AM EDT documented as of this encounter Care Teams Implementation Services Analyst Relationship Specialty Start Date End Date Mariano Trujillo MD [address] [place] [address] PCP - General 01/29/21 documented as of this encounter
--- OUTSIDE RECORDS SUMMARY | 2025-03-14 20:39 | XMS_ITS | Encounter Summary ---
Author Organization Healthcare Address [address] [place] [address] Care Team Providers Care Child Care Centre Manager Name Role Phone Mariano Trujillo MD Primary Care Provider [phone] Encounter Details Date Type Department Care Team ([facility] Contact Info) Description 07/31/2024 Orders Only External Location [address] [place] [address] Provider, External Social History Tobacco Use Types [...] Procedure Name Priority Date/Time Associated Diagnosis Comments CT NEURO OUTSIDE IMAGES 07/31/2024 9:04 PM EST documented in this encounter Results * CT NEURO OUTSIDE IMAGES (07/31/2024 9:04 PM EST) Anatomical Region Laterality Modality Computed Tomogra phy 07/31/2024 9:04 PM EST us External Provider IMG CT PROCEDURES Final Result documented in this encounter Visit Diagnoses Not on filedocumented in this encounter Additional Health Concerns Assessment Noted Time A fall risk assessment has been complete d for the patient 06/07/2022 8:04 AM EDT documented as of this encounter Care Teams Child Care Centre Manager Relationship Specialty Start Date End Date Mariano Trujillo MD [address] [place] [address] PCP - General 01/29/21 documented as of this encounter
--- OUTSIDE RECORDS SUMMARY | 2025-03-14 20:39 | XMS_ITS | Encounter Summary ---
Author Organization Healthcare Address [address] [place] [address] Care Team Providers Care In Flight Refueling Craftsman Name Role Phone Mariano Trujillo MD Primary Care Provider [phone] Encounter Details Date Type Department Care Team ([facility] Contact Info) Description 07/31/2024 Orders Only External Location [address] [place] [address] Provider, External Social History Tobacco Use Types [...] Diagnosis Comments CT NEURO OUTSIDE IMAGES 07/31/2024 9:06 PM EST documented in this encounter Results * CT NEURO OUTSIDE IMAGES (07/31/2024 9:06 PM EST) Anatomical Region Laterality Modality Computed Tomogra phy 07/31/2024 9:06 PM EST us External Provider IMG CT PROCEDURES Final Result documented in this encounter Visit Diagnoses Not on filedocumented in this encounter Additional Health Concerns Assessment Noted Time A fall risk assessment has been complete d for the patient 06/07/2022 8:04 AM EDT documented as of this encounter Care Teams In Flight Refueling Craftsman Relationship Specialty Start Date End Date Mariano Trujillo MD [address] [place] [address] PCP - General 01/29/21 documented as of this encounter
--- OUTSIDE RECORDS SUMMARY | 2025-03-14 20:39 | XMS_ITS | Data Portability ---
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 medication regimen, but due to UDS inconsistencies and missed randoms, she was discharged. The patient's pain is in the low back and neck with radiation into the BLE/LUE with sensational changes. She also reports muscle tightness/spasms that affect her function as well. She reports having difficulty with ADLs due to increased pain. She goes on to say that she recently fell, causing exacerbated pain in the neck and left shoulder. Patient has participated in PT multiple times and continues at home exercises/stretches and other conservative measures with minimal relief. She wishes to discuss treatment options that will alleviate her pain more long-term. Initial complaint: chronic neck and low back painOnset: 2006Context: worsening over timeCharacter: sharp, aching, throbbing, numbness/tingling, radiatingLocation: neck, low back, left shoulder, LUE, BUEDuration: constant with fluctuationsInitial Intensity: 9/10Worse: bending, standing, walking, lifting, carrying, activityBetter: restAssociated symptoms: Denies saddle anaesthesia, denies acute bowel/bladder changes, denies acute power loss.ADLs: The patient's pain interferes with daily chores, exercise, sleep, relationships, and walking.Current Pain Medications: nonePrior Pain Medications: Oxycodone APAP 10-325mg, Gabapentin 800mgNSAIDS/OTC: mildly helpfulNon-interventi onal Tx: nonePhysical Therapy: 2018Interventional Tx: Shiela Madsen, - Dr. Otoole and Dr. Faye, last being 6 months ago ()Surgery: cervical fusion - 2005Imaging/Studies: lumbar MRI, lumbar x-ray Senthil Kidd MD [address], [place], [address], [facility] & [place] 12/15/2022 14:30:21 07/30/2024 text/html 07/30/24 - 59 ye ar old female in office for thyroid nodule. Patient says she has trouble swallowing, and her throat is staying sore often. Patient is a 1PPD since she was 15. Patient has been hoarse and losing her voice on and off for the past year. Does report multiple family members who are on thyroid hormone supplementation but denies any family history of thyroid surgery. Thyroid U/S available for my review at this visit. Alvina Rosa MD [address], [place], [address], [facility] & [place] 08/08/2024 13:14:03 OBGyn Episode No OBEpisode recorded.
--- OUTSIDE RECORDS SUMMARY | 2025-03-14 20:39 | XMS_ITS | Clinical Summary ---
Author Organization [facility] Address [address] [place] [address] Care Team Providers Care Certified Physical Therapist Assistant Name Role Phone Unavailable Primary Care Provider Unavailabl e Encounters Date Type Department Care Team Description 01/28/2025 Outside Orders [facility] - [facility] [address] [place] [address] Des Back MD Chronic lumbar radiculopathy (Primary Dx) from Last 3 Months Social History Tobacco Use Types Packs/Day Years Used Date Smoking Tobacco: Never Assessed Comments Unknown Sex and Gender Information Value Date Recorded Sex Assigned at Not on file Legal Sex Female 2:36 PM CDT Gender Identity Not on file Sexual Orientation Not on file Plan of Treatment Health Maintenance Due Date Last Done Comments CT Colonography 1967 Colonoscopy 1967 Colorectal Cancer Screening 1967 FOBT/FIT 1967 Fit-DNA (Cologuard) 1967 Sigmoidoscopy 1967 Depression Screening (12+) 1979 Tobacco Cessation Counseling and Screening (12+) 02/21 DTAP/TDAP/TD VACCINES (1 - Tdap) 1986 Pap Smear 02/22/1988 Breast Cancer Screening 2007 Pneumococcal 50+ years (1 of 1 - PCV) 2017 Shingles Vaccine (Zoster) (1 of 2) 2017 COVID-19 VACCINE (2 - season) 2024 Influenza Vaccine (Season Ended) 2025 07/13/20 18
--- OUTSIDE RECORDS SUMMARY | 2025-03-14 20:39 | XMS_ITS | Encounter Summary ---
Author Organization Healthcare Address [address] [place] [address] Care Team Providers Care Target Worker Name Role Phone Mariano Trujillo MD Primary Care Provider [phone] Encounter Details Date Type Department Care Team ([facility] Contact Info) Description 08/11/2023 Orders Only External Location [address] [place] [address] Provider, External Social History Tobacco Use Types [...] Associated Diagnosis Comments CT NEURO OUTSIDE IMAGES 08/11/2023 7:34 AM EST documented in this encounter Results * CT NEURO OUTSIDE IMAGES (08/11/2023 7:34 AM EST) Anatomical Region Laterality Modality Computed Tomogra phy 08/11/2023 7:34 AM EST us External Provider IMG CT PROCEDURES Final Result documented in this encounter Visit Diagnoses Not on filedocumented in this encounter Additional Health Concerns Assessment Noted Time A fall risk assessment has been complete d for the patient 06/07/2022 8:04 AM EDT documented as of this encounter Care Teams Target Worker Relationship Specialty Start Date End Date Mariano Trujillo MD [address] [place] [address] PCP - General 01/29/21 documented as of this encounter
--- OUTSIDE RECORDS SUMMARY | 2025-03-14 20:39 | XMS_ITS | Patient Health Record ---
Author Organization [facility] Address [address] [place] [address] Care Team Providers Care Manager French Name Role Phone Onel Castro II Unavailable Domenico [facility], Kenji Unavailable Unavai lable ALLERGIES Allergen (clinical drug ingredient) Drug/Non Drug Allergy documented on EMR Reaction Allergy Type Onset Date Status Toradol hives Drug Allergy Active Flexeril dizziness Drug Allergy Active Darvocet N 50 hives Drug Allergy Act marichuy lisinopril rash Drug Allergy Active tramadol tramadol rash Drug Allergy Active REASON FOR REFERRAL No Information MEDICATIONS Medication SIG (Take, Route, Frequency, Duration) Notes Start Date End Date Status pantoprazole 40 mg 1 tab(s) orally once a day for 30 day(s) 12/20/2021 Active famotidine 20 mg 1 tab(s) orally 2 times a day 12/20/2021 Active polyethylene glycol 3350 - as directed orally once a day for 7 day(s) 02/09/2022 Active ipratropium CFC free 17 mcg/inh 2 puff(s) by metered dose inhaler 4 times a day for 30 day(s) 02/09/2022 Active diazePAM 5 mg 1 tab(s) orally once a day PRN Active gabapentin 600 mg 1 tab(s) orally 3 times a day for 30 day(s) DO NOT FILL ANY SOONER THAN EVERY 30 DAYS, (OK TO FILL EARLY IF CLOSED) Active tizanidine 4 mg 1 tabs orally three times a day for 30 day(s) Active esomeprazole 40 mg 1 cap(s) orally once a day for 30 day(s) 12/20/2021 Active Acetaminophen-Oxycodone Hydrochloride 325 mg-10 mg 1 tab(s) orally every 8 hours for 30 day(s) FEBRUARY 2022 RX, DO NOT FILL ANY SOONER THAN EVERY 30 DAYS, (OK TO FILL EARLY IF CLOSED) Active carvedilol 6.25 mg 1 tab(s) orally 2 times a day for 30 day(s) 12/25/2020 Active promethazine 12.5 mg 1 tab(s) orally every 6 hours as needed for nausea 01/11/2021 Active Acetaminophen-Oxycodone Hydrochloride 325 mg-10 mg 1 tab(s) orally every 8 hours for 30 day(s) MARCH 2022 RX, DO NOT FILL ANY SOONER THAN EVERY 30 DAYS, (OK TO FILL EARLY IF CLOSED) Active atorvastatin 40 mg 1 tab(s) orally once a day for 30 day(s) 12/25/2020 Active PROBLEMS Problem Type ICD Code Onset Dates Problem Status W/U Status Risk SNOMED Code Notes Problem Spondylosis without myelopathy or radiculopathy, lumbar region (M47.816) Active confirmed Lumbosacral spondylosis without myelopathy (27873693) Problem Other cervical disc degeneration, unspecified cervical region (M50.30) Active confirmed Degeneration of cervical intervertebral disc (35886627) Problem Radiculopathy, lumbar region (M54.16) Active confirmed Lumbar radiculopathy (969995096) Problem Other muscle spasm (M62.838) Active confirmed Spasm (62300277) Problem Other termite technician (current) drug therapy (Z79.899) Active confirmed Long-term current use of drug therapy (592593820) Problem Drug induced constipation (K59.03) Active confirmed Drug-induced constipation (93882303) Problem cervical radiculopathy (M54.12) Active confirmed Cervical radiculopathy (30744516) Encounters Encounter Location Date Provider Diagnosis [facility] [address] [place] [address] 02/13/2025 Onel Castro PLAN OF TREATMENT Pending Test Test Name Order Date Urine Test ANALYZER 03/06/2020 Urine Test ANALYZER 03/12/2020 Urine Test ANALYZER 09/30/2020 Urine Test ANALYZER 01/06/2021 Urine Test ANALYZER 01/07/2021 Urine Test ANALYZER 02/10/2021 Urine Test ANALYZER 04/14/2021 Urine Test ANALYZER 06/18/2021 Urine Test ANALYZER 12/17/2021 Urine Test ANALYZER 05/17/2022 Insurance Providers Payer Name Payer Address Payer Phone Subscriber Number Group Number Insured Name Patient Relationship to Insured Coverage Start Date Coverage End Date [employer] [address] [address] [place] [address] [id number] Kati Sylvester Self - patient is the insured 2 MEDICAL (GENERAL) HISTORY Medical History History ICD Code anxiety 2005 / managed by: Dr. Trujillo Depression 2005 / managed by: Dr. Trujillo arthritis OA/RA 2006 / managed by: Dr. Seth manzano reflux 3599-3210 / managed by: Dr. Trujillo hiatal hernia 2001 / managed by: Dr. Andrae will sleep apnea 2016 / managed by: Dr. Trujillo asthma 1966 / managed by: Dr. Trujillo hyperlipidemia 2018 / managed by: Dr. Brianna rivero HTN 1995 / managed by: Dr. Trujillo stroke 2019 / managed by: Dr. Trujillo gallbladder 1990s @ [facility] Dr. Trujillo Surgical History Surgery Date(Month/Year) ovarian cyst X3/ [facility] / (OPx2) & 4 day stay 2016 gallbladder/ [facility]/ 1 w [place] stay 1989 Hospitalization History Reason Date(Month/Year) [facility] for TIA - 3 day stay 07/19-08/06/2018 Stroke - [facility] - 1 week stay ( self discharged) 02/2020
--- OUTSIDE RECORDS SUMMARY | 2025-03-14 20:39 | XMS_ITS | Encounter Summary ---
Author Organization Healthcare Address [address] [place] [address] Care Team Providers Care Olap Developer Name Role Phone Mariano Trujillo MD Primary Care Provider [phone] Encounter Details Date Type Department Care Team ([facility] Contact Info) Description 08/11/2023 Orders Only External Location [address] [place] [address] Provider, External Social History Tobacco Use Types [...] Procedure Name Priority Date/Time Associated Diagnosis Comments XR OUTSIDE IMAGES 08/11/2023 7:54 AM EST documented in this encounter Results * XR OUTSIDE IMAGES (08/11/2023 7:54 AM EST) Anatomical Region Laterality Modality Radiographic Karina ging 08/11/2023 7:54 AM EST us External Provider IMG XR PROCEDURES Final Result documented in this encounter Visit Diagnoses Not on filedocumented in this encounter Additional Health Concerns Assessment Noted Time A fall risk assessment has been complete d for the patient 06/07/2022 8:04 AM EDT documented as of this encounter Care Teams Olap Developer Relationship Specialty Start Date End Date Mariano Trujillo MD [address] [place] [address] PCP - General 01/29/21 documented as of this encounter
--- OUTSIDE RECORDS SUMMARY | 2025-03-14 20:39 | XMS_ITS | Encounter Summary ---
Author Organization [facility] Address [address] [place] [address] Care Team Providers Care Sourcing Associate Name Role Phone Unavailable Primary Care Provider Unavailabl e Reason for Referral * Physical Therapy (Routine) - Open Specialty Diagnoses / Procedures Referred By Contac t Referred To Contact Physical Therapy Diagnoses Chronic lumbar radiculopathy Procedures AQUATIC PT Des Back MD [address] [address] [place] [address] Phone: tel: fax: [facility] Physical Therapy - [address] [address] Phone: tel: fax: Referral ID Status Reason Start Date Expiration Date Visits Re quested Visits Authorized [id number] Open 01/28/2025 01/28/2026 1 1 Encounter Details Date Type Department Care Team (Late st Contact Info) Description 01/28/2025 Outside Orders [facility] Physical Therapy - [address] [address] Dse Back MD [address] [address] [place] [address] Chronic lumbar radiculopathy (Primary Dx) Social History Tobacco Use Types Packs/Day Years Used Date Smoking Tobacco: Never Assessed Comments Unknown Sex and Gender Information Value Date Recorded Sex Assigned at Not on file Legal Sex Female 2:36 PM CDT Gender Identity Not on file Sexual Orientation Not on file documented as of this encounter Plan of Treatment Scheduled Referrals Name Type Priority Associated Diagnoses Orde r Schedule AMB REFERRAL TO PHYSICAL THERAPY EVALUATE, TREAT AND PLAN OF CARE Outpatient Referral Routine Chronic lumbar radiculopathy Expected: 01/28/2025, Expires: 01/28/2026 documented as of this encounter Visit Diagnoses Diagnosis Chronic lumbar radiculopathy- Primary documented in this encounter
--- OUTSIDE RECORDS SUMMARY | 2025-03-14 20:40 | XMS_ITS | Referral Summary ---
Author Organization [employer] [facility] [employer] Address [address] [place] [address] Care Team Providers Care Software Business Analyst Name Role Phone Unavailable Primary Care Provider Unavailabl e Encounters Date Type Department Care Team Description 01/28/2025 Outside Orders [facility] [place] [facility] - [address] [address] Des Back MD Chronic lumbar radiculopathy (Primary Dx) from Last 3 Months Social History Tobacco Use Types Packs/Day Years Used Date Smoking Tobacco: Never Assessed Comments Unknown Sex and Gender Information Value Date Recorded Sex Assigned at Not on file Legal Sex Female 2:36 PM CDT Gender Identity Not on file Sexual Orientation Not on file Plan of Treatment Not on file
--- OUTSIDE RECORDS SUMMARY | 2025-03-14 20:40 | XMS_ITS | Encounter Summary ---
Author Organization Healthcare Address [address] [place] [address] Care Team Providers Care Auto Club Safety Program Coordinator Name Role Phone Mariano Trujillo MD Primary Care Provider [phone] Encounter Details Date Type Department Care Team ([facility] Contact Info) Description 08/11/2023 Orders Only External Location [address] [place] [address] Provider, External Social History Tobacco Use Types [...] Name Priority Date/Time Associated Diagnosis Comments CT OUTSIDE IMAGES 08/11/2023 7:36 AM EST documented in this encounter Results * CT OUTSIDE IMAGES (08/11/2023 7:36 AM EST) Anatomical Region Laterality Modality Computed Tomogra phy 08/11/2023 7:36 AM EST us External Provider IMG CT PROCEDURES Final Result documented in this encounter Visit Diagnoses Not on filedocumented in this encounter Additional Health Concerns Assessment Noted Time A fall risk assessment has been complete d for the patient 06/07/2022 8:04 AM EDT documented as of this encounter Care Teams Auto [employer] Safety Program Coordinator Relationship Specialty Start Date End Date Mariano Trujillo MD [address] [place] [address] PCP - General 01/29/21 documented as of this encounter
--- OUTSIDE RECORDS SUMMARY | 2025-03-14 20:40 | XMS_ITS | Encounter Summary ---
Author Organization Healthcare Address [address] [place] [address] Care Team Providers Care Resident Care Director Name Role Phone Mariano Trujillo MD Primary Care Provider [phone] Encounter Details Date Type Department Care Team ([facility] Contact Info) Description 09/17/2024 Orders Only External Location [address] [place] [address] Provider, External Social History Tobacco Use Types [...] Diagnosis Comments MR NEURO OUTSIDE IMAGES 09/17/2024 9:32 AM EST documented in this encounter Results * MR NEURO OUTSIDE IMAGES (09/17/2024 9:32 AM EST) Anatomical Region Laterality Modality Magnetic Resonan ce 09/17/2024 9:32 AM EST us External Provider IMG MRI PROCEDURES Final Resul t documented in this encounter Visit Diagnoses Not on filedocumented in this encounter Additional Health Concerns Assessment Noted Time A fall risk assessment has been complete d for the patient 06/07/2022 8:04 AM EDT documented as of this encounter Care Teams Resident Care Director Relationship Specialty Start Date End Date Mariano Trujillo MD [address] [place] [address] PCP - General 01/29/21 documented as of this encounter
== END ==
LOC: SL 20:37
PROVIDERS: PCP Internal Medicine; Visit Provider Internal Medicine
DX: G47.33 Obstructive sleep apnea (adult) (pediatric) (principal); G47.36 Sleep related hypoventilation in conditions classified elsewhere
CPT/HCPCS: 95810